=== PATIENT | female | born 1945 ===

== ENCOUNTER → 2019-06-02 | Outpatient (CLI) | payer OTHER ==
[~2019-06-02] VITALS: Ht 165.1 cm; Wt 79.8 kg
[~2019-06-02] MED LIST: TYLENOL EXTRA500 MG PO
--- NOTE | ~2019-06-02 | HPC ---
[facility] [place] [address] PAIN MANAGEMENT CONSULTATION Name: ELIASCELESTE Room #: REG TIN SanfordJaquan#: [id number] Admission: 06/02/19 Attend Phys: Basil Bello MD Discharge: Date of : 49 Report #: [id number] THIS REPORT FOR: //name// CC: Nya Barba DICTATED BY: Debby Billingsley MD DATE OF SERVICE: 06/02/2019 The patient was seen on 06/02/[address] Basil Bello. PRIMARY CARE PHYSICIAN: Dr. Nya Barba. CHIEF COMPLAINT: Back and leg pain. HISTORY OF PRESENT ILLNESS: This patient is a 74-year-old female who has been referred to the pain clinic for evaluation of left buttock and pain that radiates down to her toes. Notes that the pain is worse when she is walking and sitting. Pain improves somewhat when she lies down. She describes it as continuous, aching, and throbbing. Rates it as a 9/10. Notes that the pain began and became more problematic at the beginning of May. She did try Medrol Dosepak. Pain persisted. Denies any trauma. Denies any similar pain in the past. She has not had surgery. She has not had physical therapy. She has not undergone chiropractic treatment. Denies any new bowel or bladder dysfunction. She has been told that she has a pinched nerve in her back and that is the reason for her pain and discomfort. ALLERGIES: CODEINE, DARVOCET. CURRENT MEDICATION: Tylenol 500 mg. PAST MEDICAL HISTORY: Questionable thyroid disease, liver disease, autoimmune hepatitis, and left-sided sciatica. PAST SURGICAL HISTORY: Hysterectomy, 04/2018; tubal ligation, 04/1974; tonsillectomy 65 years ago. 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 REVIEW OF SYSTEMS: Questionnaires, generally good health, wears glasses for reading, occasional ear aches, underactive thyroid. DIAGNOSTIC DATA: MRI of the lumbar spine dated 05/18/2019: 1. Degenerative changes of the intervertebral disks and apophyseal joints are [facility] [address] [place] [address] PAIN MANAGEMENT CONSULTATION Name: ELIASCELESTE Room #: REG TIN Katelin#: [id number] Admission: 06/02/19 Attend Phys: Basil Bello MD Discharge: Date of : 49 Report #: [id number] present throughout the lumbar spine. Mild circumferential L1/L2, L2/L3, L3/L4 and L4/L5 disk bulging is present. There is anterior subluxation of L4 on L5 by 2 mm with hypertrophic degenerative changes of the apophyseal joints. Anterior subluxation of L5 on S1 5 mm present with moderate posterior disk bulging and hypertrophic degenerative changes of the apophyseal joints. Moderate right and mild left L5-S1 neural foraminal stenosis is present. The spinal canal and remaining neural foramen are normal in diameter. The conus medullaris is normal in configuration and normal signal intensity. The lumbar vertebrae appear intact and normal marrow signal. ASSESSMENT: Degenerative changes throughout the lumbar spine. Grade 1 spondylolisthesis of L4 on L5, severe apophyseal joint disease. 2. Moderate right and mild left L5-S1 neural foraminal stenosis. 3. Minor anterior subluxation of L4 on L5. PAIN CLINIC ASSESSMENT/PQRS: 1. History of osteoarthritis. The patient is not being treated for osteoarthritis or rheumatoid arthritis. 2. Height 5 feet 5 inches, weight 176 pounds, BMI is 29.3. 3. Vital signs: Blood pressure 153/94, pulse 66, respiratory rate 16, room air saturation 100%. 4. Pain intensity 9/10. 5. Fall risk. The patient has not fallen in the last 3 months. 6. Blood thinner. The patient is not on a blood thinner medication. 7. Hypertension. The patient is not being treated for hypertension. 8. Opioids greater than 6 weeks. The patient is not being treated with opioid medications. 9. Risk assessment tool for opioid use low risk. 10. Functional assessment tool, 56/70. 11. Recreational drug use: The patient denies. 12. Tobacco: The patient has never smoked. 13. Alcohol: The patient denies use of alcoholic beverages. PHYSICAL EXAMINATION: GENERAL: The patient is a well-developed, well-nourished black female, appears her stated age. She is alert and oriented x 3. Her affect is appropriate. Speech is fluent. HEENT: Normocephalic, atraumatic. Extraocular eye muscles intact. Sclerae nonicteric. Mucous membranes are moist. NECK: Without adenopathy or JVD. Upper extremity muscle strength judged to be 5 minus/5 for the major muscle groups in the upper extremity. HEART: Regular rate. ABDOMEN: Nontender, bowel sounds present. BACK: The patient is without significant scoliosis, kyphosis or lordosis. EXTREMITIES: The patient has pain and discomfort in the lower portion of her back with the pain that is radiating down into the L5-S1 dermatomal distribution [address] [place] [address] PAIN MANAGEMENT CONSULTATION Name: CELESTE GRIFFIN Room #: PEDRO LUIS Thomason#: [id number] Admission: 06/02/19 Attend Phys: Basil Bello MD Discharge: Date of : 49 Report #: [id number] involving the left leg. She has some pain and discomfort in the area of the buttocks. Anterior and posterior spring tests are negative. Straight leg raising is positive on the left side. IMPRESSION: 1. Lumbar radiculopathy involving the left side. 2. Questionable thyroid disease. 3. Liver disease. 4. Autoimmune hepatitis. 5. Left-sided sciatica. RECOMMENDATIONS: We discussed the treatment options with the patient. Risks and benefits of an epidural steroid injection were discussed. They include, but are not limited to infection, worsening of pain, no improvement in pain, increased muscle soreness, possible nerve trauma with radiculopathy and paralysis. The patient elects to proceed. PROCEDURE NOTE: The patient was taken to the procedure area. She was then assisted in getting on the examination table. Her back was sterilely prepped with a Betadine solution. A 0.25% bupivacaine was infiltrated using a 25-gauge needle, using a midline approach at L5-S1. Aspiration was negative. A 17-gauge Tuohy with loss of resistance technique was used to gain access through the epidural space. There was no CSF, heme or paresthesia. A midline approach was used. A left paramedian approach was undertaken. A total of 80 mg Depo-Medrol, 40 mg of triamcinolone and 2 mL of 0.25% bupivacaine was injected. The patient's pain was decreased from 9 to 0 at the time of discharge. A total of 8 seconds fluoroscopy time was used. The patient will follow up in the future as needed. We would like to thank you for letting us participate in her care. We hope she continues to improve. By: [id number] Basil Bello MD /nt
[2019-06-02 10:33] VITALS: BP 153/94
--- NOTE | 2019-06-02 10:52 | NUR ---
Pain Clinic Assessment: 1. History of Osteoarthritis: NONE History of Rheumatoid Arthritis: NONE 2. Height: 5 ft. 5 in. 165.1 cm. Weight: 176.0 lb. oz. 79.833 kg. Patient's BMI: 29.3 3. Vital Signs: BP: 153/94 Pulse: 66 Resp: 16 Temp: 02 Sat: 100 ECG Mon: 4. Pain Intensity: 9 5. Fall Risk: Dizziness: N Needs help standing or walking: N Fallen in the last 3 months: Y Fall risk comments: 6. Patient on Blood Thinner: None 7. History of Hypertension: N 8. Opioid Therapy greater than 6 weeks: N Opiate Contract Signed: 9. Risk Assessment Tool Provided: LOW 10. Functional Assessment Tool: 56/70 11. Recreational Drug Use: Never Drug Type: Tobacco Use: Never Smoker Tobacco Type: Amount or Packs/day: How Many Years: Alcohol Use: No Frequency: Quant:
== END | disposition home or self-care (01) ==
LOC: PAIN 06:51
DX: M51.16 Intervertebral disc disorders with radiculopathy, lumbar region (principal); M48.061 Spinal stenosis, lumbar region without neurogenic claudication; M43.16 Spondylolisthesis, lumbar region; G89.29 Other chronic pain; K75.4 Autoimmune hepatitis; Z90.710 Acquired absence of both cervix and uterus; Z98.890 Other specified postprocedural states; Z79.891 Long term (current) use of opiate analgesic; Z88.6 Allergy status to analgesic agent; Z88.8 Allergy status to other drugs, medicaments and biological substances; Z79.899 Other long term (current) drug therapy; Z88.0 Allergy status to penicillin

== ENCOUNTER → 2020-08-21 | Outpatient (CLI) | payer OTHER ==
[~2020-08-21] VITALS: Ht 165.1 cm; Wt 81.3 kg
[~2020-08-21] MED LIST changes: +HYDROCODON-ACE1 EAC7 PO; +PROTONIX40 M2 PO
[2020-08-21 10:02] VITALS: BP 148/80
--- NOTE | 2020-08-21 10:32 | NUR ---
Pain Clinic Assessment: 1. History of Osteoarthritis: BACK HIP LEG History of Rheumatoid Arthritis: NONE 2. Height: 5 ft. 5 in. 165.1 cm. Weight: 179.2 lb. oz. 81.285 kg. Patient's BMI: 29.8 3. Vital Signs: BP: 148/80 Pulse: 69 Resp: 14 Temp: 02 Sat: 100 ECG Mon: 4. Pain Intensity: 6 TO 10 5. Fall Risk: Dizziness: N Needs help standing or walking: N Fallen in the last 3 months: N Fall risk comments: 6. Patient on Blood Thinner: None 7. History of Hypertension: N 8. Opioid Therapy greater than 6 weeks: N Opiate Contract Signed: 9. Risk Assessment Tool Provided: LOW 10. Functional Assessment Tool: 56/ 11. Recreational Drug Use: Never Drug Type: Tobacco Use: Never Smoker Tobacco Type: Amount or Packs/day: How Many Years: Alcohol Use: Yes Frequency: Monthly Quant: 2
== END | disposition home or self-care (01) ==
LOC: PAIN 06:49
PROVIDERS: ATTEND Anesthesiology Pain Medicine
DX: M54.16 Radiculopathy, lumbar region (principal); G89.29 Other chronic pain; Z98.890 Other specified postprocedural states; Z79.899 Other long term (current) drug therapy; Z88.0 Allergy status to penicillin; Z88.8 Allergy status to other drugs, medicaments and biological substances